=== PATIENT | female | born 1985 ===

== ENCOUNTER 2018-07-27 01:28 | Inpatient (IN) ==
[2018-07-27] MEDS ORDERED: ONDANSETRON 4 MG/2 ML VIAL IV PRN ×2 (02:02→10:39)
[2018-07-27] MEDS ORDERED: MORPHINE 4 MG/1 ML VIAL IV PRN (02:02)
[2018-07-27] MEDS ORDERED: SODIUM CHLORIDE 0.9% 100 ML IV ONE ×2 (02:09→10:33)
[2018-07-27] MEDS ORDERED: PIPERACILLIN/TAZOBACTAM 3,375 MG VIAL IV ONE (02:09)
[2018-07-27] MEDS: PIPERACILLIN/TAZOBACTAM 3,375 MG in SODIUM CHLORIDE 0.9% 100 ML IV SCH ×2 (02:17→11:15)
[2018-07-27] MEDS: DEXTROSE 5% NACL 0.45% 1,000 ML IV SCH ×3 (02:17→22:25)
[2018-07-27] MEDS ORDERED: cefOXitin 2,000 MG in SYRINGE 1 EACH IV ONE (06:39)
[2018-07-27] MEDS ORDERED: TISSUE ADHESIVE 1 EACH APPLICATOR TOP ONE (08:36)
[2018-07-27] MEDS ORDERED: LIDOCAINE 1%/EPI INJ 20 ML VIAL ONE (08:37)
[2018-07-27] MEDS ORDERED: BUPIVACAINE MPF 0.25% 30 ML VIAL ONE (08:37)
[2018-07-27] MEDS: PANTOPRAZOLE 40 MG TABLET PO SCH (09:04)
[2018-07-27] MEDS ORDERED: fentaNYL 100 MCG/2 ML VIAL ONE (10:32)
[2018-07-27] MEDS ORDERED: PROPOFOL 200 MG/20 ML VIAL IV ONE (10:32)
[2018-07-27] MEDS ORDERED: MIDAZOLAM 2 MG/2 ML VIAL ONE (10:32)
[2018-07-27] MEDS ORDERED: SEVOFLURANE 1 UNIT/15 MINUTE INH ONE (10:32)
[2018-07-27] MEDS ORDERED: NEOSTIGMINE 10 MG/10 ML VIAL ONE (10:33)
[2018-07-27] MEDS ORDERED: SUCCINYLCHOLINE 200 MG/10 ML VIAL ONE (10:33)
[2018-07-27] MEDS ORDERED: LACTATED RINGERS 1,000 ML IV ONE (10:33)
[2018-07-27] MEDS ORDERED: DEXAMETHASONE 10 MG/1 ML VIAL ONE (10:33)
[2018-07-27] MEDS ORDERED: GLYCOPYRROLATE 0.4 MG/2 ML VIAL ONE (10:33)
[2018-07-27] MEDS ORDERED: KETOROLAC 30 MG/1 ML VIAL ONE (10:33)
[2018-07-27] MEDS ORDERED: ACETAMINOPHEN 1,000 MG/100 ML VIAL IV ONE (10:33)
[2018-07-27] MEDS ORDERED: ONDANSETRON 4 MG/2 ML VIAL ONE ×2 (10:33→10:39)
[2018-07-27] MEDS ORDERED: ROCURONIUM 100 MG/10 ML VIAL IV ONE (10:33)
[2018-07-27] MEDS ORDERED: HYDROmorphone 2 MG/1 ML VIAL IV PRN (10:39)
[2018-07-27] MEDS ORDERED: HYDROmorphone 2 MG/1 ML VIAL ONE (10:39)
[2018-07-27] MEDS: ENOXAPARIN 40 MG/0.4 ML SYRINGE SUBCUT SCH (13:08)
[2018-07-27] MEDS: DOXYCYCLINE HYCLATE 100 MG CAPSULE PO SCH ×2 (13:08→22:28)
[2018-07-27] MEDS: cefOXitin 2,000 MG in SYRINGE 1 EACH IV SCH ×2 (15:24→22:26)
[2018-07-28] MEDS: cefOXitin 2,000 MG in SYRINGE 1 EACH IV SCH ×4 (03:35→14:26)
[2018-07-28] MEDS: DEXTROSE 5% NACL 0.45% 1,000 ML IV SCH (03:35)
[2018-07-28 05:45] LABS: Basophils % 0.2 % (0.0-0.8); Eosinophils % 0.3 % (0.00-10.9); Hematocrit 34.8 VOL% (35.7-47.0); Immature Granulocytes % 0.5 %; Immature Granulocytes Absolute 0.06 #; Lymphocytes # 1.7 10*3/uL (1.4-4.0); Lymphocytes % 13.6 % (21.3-54.2); Mean Corpuscular HGB Conc 31.6 GM/DL (32-36); Mean Corpuscular Hemoglobin 29 PG (27-34); Mean Corpuscular Volume 90.9 FL (87-102); Mean Platelet Volume 9.2 FL (9.6-12.0); Monocytes # 0.6 10*3/uL (0.11-0.8); Monocytes % 4.7 % (1.7-12.7); Neutrophils # 10.1 10*3/uL (1.4-7.4); Neutrophils % 80.7 % (38.7-73.9); Platelet Count 396 T/CUMM (130-400); Red Blood Count 3.83 MC/CUMM (3.8-5.5); Red Cell Distribution Width 12.9 % (9.3-17.3); White Blood Count 12.6 T/CUMM (4-12)
[2018-07-28 06:09] LABS: Calcium 8.4 MG/DL (8.5-10.1); Osmolality,Calculated 280.3 MOS/KG (273-304); Potassium 4.1 MMOL/L (3.5-5.1)
[2018-07-28] MEDS: ENOXAPARIN 40 MG/0.4 ML SYRINGE SUBCUT SCH (09:33)
[2018-07-28] MEDS: PANTOPRAZOLE 40 MG TABLET PO SCH (09:34)
[2018-07-28] MEDS: DOXYCYCLINE HYCLATE 100 MG CAPSULE PO SCH (09:34)
[2018-07-28 11:45] VITALS: BP 93/62
[2018-07-28] MEDS ORDERED: metroNIDAZOLE 500 MG TABLET PO SCH (21:00)
== END 2018-07-28 14:40 | disposition home or self-care (01) | DRG 342 ==
LOC: EDBD → EDUNIT# → N.ED 01:28 → N.EDINP 01:28 → N.3E 02:44
PROVIDERS: ADMIT Surgery; ATTEND Surgery